=== PATIENT | female | born 1965 | race Caucasian/White ===

== ENCOUNTER 2017-01-13 23:02 | Emergency (ER) | payer OTHER ==
--- NOTE | 2017-01-13 23:15 | ED Physician Documentation ---
History of Present Illness - Stated complaint Stated Complaint: HEADACHE,BACKACHE,DIZZY - Chief complaint Chief Complaint: Neuro - History obtained from History obtained from: Patient, Family (spouse) - History of Present Illness Timing: How many weeks ago (1) Pain level now: 5 Improved by: rest Worsened by: exertion - Additonal information Additional information: c/o one week of gradually worsening unilateral headache (left-side), generalized fatigue, malaise, weakness. Nausea without vomiting. decreased appetite. Also low back pain, although this is chronic. Review of Systems Constitutional: reports: Fever (last week), Fatigue. denies: Chills, Myalgias, Sweats Eyes: reports: Reviewed and negative Ears: reports: Reviewed and negative Nose: reports: Reviewed and negative Cardiac: reports: Reviewed and negative Respiratory: reports: Reviewed and negative GI: reports: Nausea. denies: Abdominal Pain, Abdominal Swelling, Vomiting, Constipation, Diarrhea : reports: Reviewed and negative Musculoskeletal: reports: Back pain. denies: Neck pain Neurologic: reports: Generalized weakness, Headache. denies: Focal weakness, Numbness, Confused, Altered mental status PD PAST MEDICAL HISTORY - Past Medical History Past Medical History: Yes Other Past Medical History: recent I+D of posterior oropharyngeal abscess and subsequent antibiotics (which she has completed. she denies any throat pain, discomfort, swelling at this time) - Past Surgical History Past Surgical History: Yes /OUTPATIENT FACILITY PHYSICAL THERAPIST: section - Present Medications Home Medications: Ambulatory Orders Medication Instructions Recorded Confirmed Hydrocodone/Acetaminophen 1 - 2 each PO Q6HR PRN #14 tablet 01/14/17 [Hydrocodon-Acetaminophen 5-325] - Allergies Allergies/Adverse Reactions: Allergies Allergy/AdvReac Type Severity Reaction Status Date / Time No Known Drug Allergies Allergy Verified 01/13/17 23:05 - Social History Does the pt smoke?: No Smoking Status: Never smoker Does the pt drink ETOH?: No Does the pt have substance abuse?: No - Immunizations Immunizations are current?: Yes - POLST Patient has POLST: No PD ED PE NORMAL - Vitals Vital signs reviewed: Yes - General General: Alert and oriented X 3, No acute distress, Well developed/nourished - HEENT HEENT: PERRL, EOMI, Moist mucous membranes, Pharynx benign - Neck Neck: Supple, no meningeal sign - Cardiac Cardiac: RRR, No murmur, No gallop, No rub - Respiratory Respiratory: No respiratory distress, Clear bilaterally - Abdomen Abdomen: Soft, Non tender - Back Back: No CVA TTP - Derm Derm: Normal color, Warm and dry - Extremities Extremities: No edema - Neuro Neuro: Alert and oriented X 3, tyre retreader 2-12 intact, Normal speech Results - Vitals Vitals: Oxygen O2 Source Room air - Labs Labs: Laboratory Tests 01/13/17 01/13/17 23:50 23:50 WBC 4.7 L RBC 5.04 Hgb 14.9 Hct 44.5 MCV 88.3 MCH 29.5 MCHC 33.4 RDW 12.5 Plt Count 214 MPV 8.4 Neut # 2.5 Lymph # 1.7 [place] # 0.3 Eos # 0.2 Baso # 0.0 Absolute Nucleated RBC 0.00 Nucleated RBCs 0.0 Sodium 138 Potassium 4.2 Chloride 103 Carbon Dioxide 27 Anion Gap 8.0 BUN 17 Creatinine 0.9 Estimated GFR (MDRD) 66 L Glucose 110 H Calcium 9.1 - Rads (name of study) CT head Radiology: Prelim report reviewed, See rad report PD MEDICAL DECISION MAKING - ED course Complexity details: reviewed results, re-evaluated patient, considered differential, d/w patient, d/w family Departure - Departure Disposition: 01 Home, Self Care Clinical Impression: Headache, Fatigue Condition: Good Instructions: ED Cephalgia Unspecified, ED Weakness [facility] Follow-Up: [facility]STR[facility] Mominsarah Barboza [Provider Group] Prescriptions: Hydrocodone/Acetaminophen [Hydrocodon-Acetaminophen 5-325] 1 - 2 each PO Q6HR PRN #14 tablet PRN Reason: Pain Discharge Date/Time: 01/14/17 01:00
[2017-01-14 00:05] LABS: EOSINOPHILS # (AUTO) 0.2 10^3/uL (0.0-0.7); EOSINOPHILS % (AUTO) 3.4 %; HCT - HEMATOCRIT 44.5 % (37.0-47.0); HGB - HEMOGLOBIN 14.9 g/dL (12.0-16.0); LYMPHOCYTES # (AUTO) 1.7 10^3/uL (1.5-3.5); LYMPHOCYTES % (AUTO) 34.8 %; MEAN CORPUSCULAR HEMOGLOBIN 29.5 pg (27.0-31.0); MEAN CORPUSCULAR HGB CONC 33.4 g/dL (32.0-36.0); MEAN CORPUSCULAR VOLUME 88.3 fL (81.0-99.0); MEAN PLATELET VOLUME 8.4 fL (7.9-10.8); MONOCYTES # (AUTO) 0.3 10^3/uL (0.0-1.0); NEUTROPHILS # (AUTO) 2.5 10^3/uL (1.5-6.6); NEUTROPHILS % (AUTO) 53.8 %; RED BLOOD COUNT 5.04 10^6/uL (4.20-5.40); RED CELL DISTRIBUTION WIDTH 12.5 % (12.0-15.0); UNCORRECTED WHITE BLOOD COUNT 4.7 x10^3/uL; WHITE BLOOD COUNT 4.7 x10^3/uL (4.8-10.8)
[2017-01-14 00:12] LABS: CALCIUM 9.1 mg/dL (8.5-10.3); CREATININE 0.9 mg/dL (0.4-1.0); POTASSIUM 4.2 mmol/L (3.5-5.0)
--- NOTE | 2017-01-14 00:30 | CT Preliminary Report ---
Exam: CT Head W/O IMPRESSION: Normal head CT. [facility] SITE ID: [id number]
--- NOTE | 2017-01-14 00:32 | CT Report ---
EXAM: CT HEAD EXAM DATE: 01/14/2017 12:17 AM. CLINICAL HISTORY: Headache for one week with nausea and dizziness COMPARISON: None. TECHNIQUE: Multiaxial CT images were obtained from the foramen magnum to the vertex. IV contrast: Non e. Reformats: Coronal. In accordance with CT protocol optimization, one or more of the following dose reduction techniques w ere utilized for this exam: automated exposure control, adjustment of mA and/or KV based on patient s ize, or use of iterative reconstructive technique. FINDINGS: Parenchyma: No intraparenchymal hemorrhage. No evidence of mass, midline shift, or CT findings of inf arction. Lobo-white differentiation is distinct. Extraaxial Spaces: Normal for age. No subdural or epidural collections identified. Ventricles: Normal in size and position. Sinuses: Imaged paranasal sinuses, orbits, and mastoids show no significant abnormality. Bones: No evidence of fracture or calvarial defect. Other: None. IMPRESSION: Normal head CT. [facility] Referring Provider Line: [phone] SITE ID: [id number]
[2017-01-14] MEDS ORDERED: HYDROcod/ACETAM 5/325 MG TABLET PO STA (00:51)
[2017-01-14 00:53] VITALS: BP 110/78
[2017-01-14] MEDS ORDERED: HYDROcod/ACETAM 5/325 MG TABLET ONE (00:59)
== END 2017-01-14 01:00 | disposition home or self-care (01) ==
LOC: ED 23:02
DX: R51 Headache (principal); R53.83 Other fatigue
CPT/HCPCS: 36415; 70450; 80048; 85025; 99283; A9270

== ENCOUNTER 2018-01-31 08:31 | Outpatient (CLI) | payer OTHER ==
--- NOTE | 2018-01-31 10:20 | MRI Report ---
Reason: PARESTHESIA OF SKIN Procedure Date: 01/31/2018 Accession Number: [id number] / [id number] Procedure: MRI - Cervical Spine W/O CPT Code: FULL RESULT: EXAM: MRI CERVICAL SPINE WITHOUT CONTRAST EXAM DATE: 01/31/2018 09:14 AM. CLINICAL HISTORY: 52-year-old with paresthesias of the skin. Evaluate for surgical pathology. COMPARISONS: None. TECHNIQUE: Multiplanar, multisequence T1-weighted and fluid-sensitive sequences of the cervical spine without contrast. Other: None. FINDINGS: Neurologic Structures: The visualized posterior fossa structures are unremarkable. No signal abnormality in the visualized spinal cord. Alignment: Straightening of the normal cervical lordosis. There is 2 mm of anterior subluxation of C3 on C4. Bone Marrow: No gross fractures or bone lesions. No marrow edema. Interspace Levels/Facets: Mild endplate degenerative change, mild loss of disk height, disk desiccation seen throughout the cervical spine. C1-C2: Unremarkable on sagittal sequences. C2-C3: Bilateral arthritic facet disease. No spinal canal stenosis. No neural foraminal narrowing. C3-C4: Small broad-based disk osteophyte complex. Bilateral uncovertebral osteophyte and arthritic facet disease. No spinal canal stenosis. No neural foraminal narrowing. C4-C5: Small central to right paracentral disk osteophyte complex. Bilateral uncovertebral osteophyte and arthritic facet disease. Mild spinal canal stenosis. Moderate right and mild left neuroforaminal narrowing. C5-C6: Small broad-based disk osteophyte complex. Bilateral uncovertebral osteophyte and arthritic facet disease. Mild to moderate spinal canal stenosis. Moderate bilateral neuroforaminal narrowing. C6-C7: Small broad-based disk osteophyte complex. Bilateral uncovertebral osteophyte and arthritic facet disease greater on the left. Mild spinal canal stenosis. Mild right and moderate to severe left neuroforaminal narrowing. C7-T1: Small central disk protrusion. Bilateral arthritic facet disease. Effacement of the ventral thecal sac. No definite spinal canal stenosis. Musculature: Normal. No edema or fatty atrophy. Other: The paravertebral and prevertebral soft tissues are normal. IMPRESSION: 1. Straightening of the normal cervical lordosis. There is 2 mm of anterior subluxation of C3 on C4. 2. Multilevel degenerative changes. C4-C5: Mild spinal canal stenosis. Moderate right and mild left neuroforaminal narrowing. C5-C6: Mild to moderate spinal canal stenosis. Moderate bilateral neuroforaminal narrowing. C6-C7: Mild spinal canal stenosis. Mild right and moderate to severe left neuroforaminal narrowing. [facility]
== END 2018-01-31 08:32 | disposition home or self-care (01) ==
LOC: DI 08:31
PROVIDERS: ATTEND Nurse Practitioner Family
DX: M47.812 Spondylosis without myelopathy or radiculopathy, cervical region (principal); M48.02 Spinal stenosis, cervical region; R20.2 Paresthesia of skin
CPT/HCPCS: 72141